=== PATIENT | female | born 1975 | race Caucasian/White ===

== ENCOUNTER 2024-05-18 19:02 | Emergency (ER) | payer MEDICAID ==
[~2024-05-18] VITALS: Ht 154.9 cm; Wt 59.0 kg
[2024-05-18 19:07] VITALS: TEMP 98.2; O2SAT 98
[2024-05-18] MEDS ORDERED: CYCL5TAB MT (20:18)
[2024-05-18] MEDS ORDERED: IBUP-2030 MT (20:18)
[2024-05-18] MEDS: IBUPROFEN 800MG TABLET PO ONE (20:25)
[2024-05-18 20:27] VITALS: BP 123/81; PULSE 59; RESP 16; O2SAT 100
== END 2024-05-18 20:28 | disposition home or self-care (01) ==
LOC: ER 19:02
DX: M54.2 Cervicalgia (principal); F19.90 Other psychoactive substance use, unspecified, uncomplicated
CPT/HCPCS: 72040; 99283